=== PATIENT | male | born 1995 | race Caucasian/White ===

== ENCOUNTER → 2017-06-09 | Outpatient (CLI) | payer BC | LOC: BMCIMAGING 16:13 | PROVIDERS: ATTEND Family Medicine | DX: R07.89 Other chest pain (principal) ==

== ENCOUNTER → 2017-06-17 | Outpatient (CLI) | payer BC | LOC: BMCIMAGING 12:07 | PROVIDERS: ATTEND Family Medicine | DX: R10.9 Unspecified abdominal pain (principal) ==

== ENCOUNTER → 2018-03-02 | Outpatient (CLI) | payer BC | LOC: BMCIMAGING 14:24 | PROVIDERS: ATTEND Family Medicine | DX: M79.645 Pain in left finger(s) (principal); M79.89 Other specified soft tissue disorders ==